=== PATIENT | male | born 1980 | race Two or more races ===

== ENCOUNTER 2019-06-13 23:41 | Inpatient (IN) | payer SELFPAY ==
[~2019-06-13] VITALS: Ht 177.8 cm; Wt 98.0 kg
[2019-06-14] VITALS (18 sets, daily range): BP systolic 81–115; BP diastolic 38–65
[2019-06-14] MEDS ORDERED: PANTOPRAZOLE 40 MG/10 ML VIAL INJ IV ONE ×2 (00:15→00:58)
[2019-06-14] MEDS ORDERED: PANTOPRAZOLE 80 MG in SODIUM CHL 0.9% 60 ML IV ONE (00:15)
[2019-06-14] MEDS ORDERED: SODIUM CHLORIDE 0.9% 2,000 ML IV ONE (00:15)
[2019-06-14 00:25] LABS: Eosinophils # (auto) 0 uL; Eosinophils % (auto) 0.5 % (0.0-7.0); Hemoglobin 8.3 g/dL (13.5-17.5); Lymphocytes # (auto) 0.4 uL; Lymphocytes % (auto) 5.6 % (10.0-50.0); Monocytes # (auto) 0.4 uL
[2019-06-14 00:26] LABS: Basophils # (auto) 0.1 uL; Basophils % (auto) 0.7 % (0.0-2.0); Hematocrit 26.6 % (41.0-53.0); Mean Corpuscular Hgb Conc. 31.2 g/dL (32.0-36.0); Mean Corpuscular Volume 76.8 fL (80.0-100.0); Monocytes % (auto) 5.6 % (0.0-12.0); Neutrophils % (auto) 87.6 % (37.0-80.0); Nucleated Red Blood Cells % 0.1 %; Platelet Count (auto) 126 10^3/uL (140-450); Red Blood Cells 3.47 10^6/uL (4.5-5.90); Red Cell Distribution Width 17.7 % (11.8-14.3); White Blood Cell 7.9 10^3/uL (4.4-10.8)
[2019-06-14 00:39] LABS: Alanine Aminotransferase 241 U/L (16-61); Albumin 2.9 g/dL (3.4-5.0); Anion Gap 8 (5-15); Aspartate Aminotransferase 415 U/L (15-37); Blood Urea Nitrogen 24 mg/dL (7-18); Calcium 7.1 mg/dL (8.5-10.1); Carbon Dioxide 21 mmol/L (21-32); Chloride 115 mmol/L (98-107); GFR African American 122 mL/min; GFR Non-African American 101 mL/min; Glucose 121 mg/dL (74-106); Potassium 4.9 mmol/L (3.5-5.1); Sodium 144 mmol/L (136-145)
[2019-06-14 00:40] LABS: INR 1.53 (0.9-1.15); Partial Thromboplastin Time 26.7 sec (23.64-32.05)
[2019-06-14 00:44] LABS: Lactic Acid w/Reflex 4.7 mmol/L (0.4-2.0)
[2019-06-14 00:50] LABS: Alkaline Phosphatase 108 U/L (45-117); Bilirubin, Total 1.2 mg/dL (0.2-1.0); Total Protein 6.5 g/dL (6.4-8.2)
[2019-06-14] MEDS ORDERED: SODIUM CHLORIDE 0.9% 3,000 ML IV ONE (02:00)
[2019-06-14] MEDS ORDERED: VANCOMYCIN PER PHARMACY 1,000 MG IV SCH (02:00)
[2019-06-14] MEDS ORDERED: IOHEXOL 300 MG/ML 100ML BOTTLE IJ ONE (02:16)
[2019-06-14] MEDS ORDERED: VANCOMYCIN 1GM/250ML 250 ML IV SCH (02:30)
[2019-06-14] MEDS: VANCOMYCIN 500 MG in D5W 5% 100 ML IV SCH ×2 (04:00→04:46)
[2019-06-14] MEDS ORDERED: PIPERACILLIN-TAZOB 3.375GM 100 ML IV SCH (06:00)
[2019-06-14] MEDS ORDERED: ONDANSETRON HCL 4 MG/2 ML VIAL IV PRN (06:00)
[2019-06-14] MEDS ORDERED: OCTREOTIDE ACETATE 500 MCG/ML VL ONE (06:12)
[2019-06-14] MEDS ORDERED: OCTREOTIDE ACETATE 100 MCG/ML VL ONE (06:12)
[2019-06-14] MEDS ORDERED: MORPHINE SULF INJ 2 MG/ML SYRINGE 1ML IV PRN (06:15)
[2019-06-14] MEDS ORDERED: NITROGLYCERIN 0.4 MG SL TAB SL PRN (06:15)
[2019-06-14] MEDS: D5W/SOD CHL 0.45% 1,000 ML IV SCH (06:56)
[2019-06-14 06:59] LABS: Hematocrit 20.2 % (41.0-53.0)
[2019-06-14 07:07] LABS: Hemoglobin 6.5 g/dL (13.5-17.5)
[2019-06-14] MEDS: OCTREOTIDE ACETATE 500 MCG in SODIUM CHL 0.9% 99 ML IV SCH ×2 (07:17→16:31)
[2019-06-14] MEDS: PANTOPRAZOLE 80 MG in SODIUM CHL 0.9% 60 ML IV SCH ×2 (07:40→10:06)
--- NOTE | 2019-06-14 08:00 | NUR ---
RECEIVED PATIENT FROM THE ER WITH COMPLAINT, OF VOMITING BLOOD AND BLOOD IN THE STOOL, A/O TIMES 4, BUT DIZZY AND WEAK AT THIS TIME AND HAD TO BE GOTTEN TO THE BED, O2 BY R/A, STATES HE CAN USE THE URINAL, PROTONIX DRIP AT 8ML/HR INFUSING INTO THE LAC AND OCTREOTIDE 10ML/HR INFUSING INTO THE RAC BOTH BY THE IV PUMP, EXPLAIN THE P AND P OF THE MARIJA
--- NOTE | 2019-06-14 08:30 | NUR ---
PATIENT IS NPO Addendum: 06/14/19 at 1855 by Kimberley Morton RN PLACED 20G TO THE LEFT HAND 07/17 ATTEMPTS USING STERILE TECHNIQUE
--- NOTE | 2019-06-14 09:15 | NUR ---
VOMITED ABOUT 100ML OF CLOTTED THIGH DARK BLOOD
--- NOTE | 2019-06-14 09:33 | NUR ---
FIRST UNIT OF BLOOD STARTED
[2019-06-14] MEDS ORDERED: LEVOFLOXACIN 500MG 100 ML IV SCH (10:00)
--- NOTE | 2019-06-14 10:10 | NUR ---
LYING IN BED THE BED, WITH EYES CLOSED
--- NOTE | 2019-06-14 10:30 | NUR ---
GIRLFRIEND IN TO VISIT WITH THE PATIENT
--- NOTE | 2019-06-14 11:10 | NUR ---
DR TIPTON IN TO SEE THE PATIENT AND SPOKE TO HIM ABOUT HAVING A EGD TOMORROW
[2019-06-14] MEDS ORDERED: METOCLOPRAMIDE HCL 5MG/ml INJ 2ml VIAL IV ONE (11:30)
--- NOTE | 2019-06-14 11:30 | NUR ---
DR DOWNS IN TO SEE THE PATIENT AND CHANGED THE ANTIBIOTICS
--- NOTE | 2019-06-14 12:05 | NUR ---
FIRST UNIT OF BLOOD FINISHED AND NOT REACTION
--- NOTE | 2019-06-14 12:12 | NUR ---
SECOND UNIT OF BLOOD STARTED,
[2019-06-14] MEDS ORDERED: LORazepam 2MG/ML-1ML VIAL IV PRN (12:30)
--- NOTE | 2019-06-14 13:00 | NUR ---
LYING IN BED WITH EYES CLOSED
[2019-06-14] MEDS: cefTRIAXone 1GM/50ML D5W 50 ML IV SCH (13:01)
[2019-06-14] MEDS: metroNIDAZOLE 500MG/100ML 100 ML IV SCH ×2 (14:14→21:25)
--- NOTE | 2019-06-14 14:15 | NUR ---
LYING IN BED WITH EYES CLOSED
[2019-06-14] MEDS ORDERED: VANCOMYCIN 1,500 MG in D5W 5% 250 ML IV SCH (15:00)
--- NOTE | 2019-06-14 15:00 | NUR ---
STATES HE IS FEELING AT LITTLE BETTER
--- NOTE | 2019-06-14 15:30 | NUR ---
SECOND UNIT OF BLOOD FINISHED
--- NOTE | 2019-06-14 16:18 | NUR ---
ONE UNIT OF FFP BEING STARTED,
[2019-06-14] MEDS: FOLIC ACID 1 MG, MULTIPLE VITAMIN 10 ML, MAGNESIUM SULF SDV 50% 8 MEQ, THIAMINE INJ 100... INJ SCH ×5 (16:32)
--- NOTE | 2019-06-14 17:01 | NUR ---
NO COMPLAINTS , LYING IN BED
--- NOTE | 2019-06-14 18:30 | NUR ---
LYING IN BED WATCHING TV, O2 BY R/A, A/O [id number], I UNIT OF FFP FINISHED AND NO REACTION OCTREOTIDE INFUSING INTO THE LEFT HAND AT 10ML/HR BY THE IV PUMP, AND MULTI VITAMINS INFUSING INTO THE LAC AT 126ML/HR BY THE IV PUMP, ABLE TO GET UP TO THE BSC OR USE THE URINAL, VOMITED TIMES 1 TODAY AND HAD 2 BLOODY STOOL, NO COMPLAINING OF ANY PAIN TO THE ABD AT THIS TIME, WILL CONTINUE TO MONITOR AND TEXTILE PIN WORKER REPORT TO THE NEXT SHIFT
[2019-06-14 18:34] LABS: Hematocrit 23.3 % (41.0-53.0); Hemoglobin 7.8 g/dL (13.5-17.5)
--- NOTE | 2019-06-14 19:50 | NUR ---
Opening Shift Note Assumed care of patient, awake and alert. No S/S of distress/SOB or pain. Instructed on POC and possible procedure scheduled for tomorrow. Patient states he does not recall conversation with GI, Dr. Barros regarding it,consents will not be signed.Instructed patient to call for assist PRN, will continue to monitor for changes q1hr and PRN. See interventions for complete assessment.
[2019-06-14] MEDS: PANTOPRAZOLE 40 MG/10 ML VIAL INJ IV SCH (21:25)
[2019-06-14] MEDS ORDERED: MORPHINE SULF INJ 2 MG/ML SYRINGE 1ML IV ONE (21:30)
--- NOTE | 2019-06-14 21:59 | NUR ---
PT WAS C/O HEADACHE FROM RECENT FALL RATED 8/10 SPOKE TO OVER THE PHONE AND NEW TELEPHONE ORDER READ BACK AND VERIFIED FOR 2MG MORPHINE IV X1. MORPHINE IV GIVEN TO PATIENT PER ORDERS, WILL REASSESS FOR EFFECTIVENESS PATIENT'S SIGNIFICANT OTHER JESUS AT BEDSIDE
[2019-06-15] VITALS (15 sets, daily range): BP systolic 58–125; BP diastolic 51–72
[2019-06-15] MEDS: D5W/SOD CHL 0.45% 1,000 ML IV SCH ×3 (00:44→23:12)
[2019-06-15 00:51] LABS: Hemoglobin 7.6 g/dL (13.5-17.5)
[2019-06-15] MEDS: OCTREOTIDE ACETATE 500 MCG in SODIUM CHL 0.9% 99 ML IV SCH ×3 (02:49→23:30)
[2019-06-15] MEDS: metroNIDAZOLE 500MG/100ML 100 ML IV SCH ×3 (06:20→23:13)
[2019-06-15 06:36] LABS: Hemoglobin 7.2 g/dL (13.5-17.5); Lymphocytes # (auto) 0.6 uL
[2019-06-15 06:39] LABS: Basophils # (auto) 0 uL; Basophils % (auto) 0.6 % (0.0-2.0); Eosinophils # (auto) 0.1 uL; Eosinophils % (auto) 0.9 % (0.0-7.0); Hematocrit 21.6 % (41.0-53.0); Lymphocytes % (auto) 9.8 % (10.0-50.0); Mean Corpuscular Hemoglobin 25.9 pg (28.0-32.0); Mean Corpuscular Hgb Conc. 33.3 g/dL (32.0-36.0); Mean Corpuscular Volume 77.6 fL (80.0-100.0); Monocytes # (auto) 0.6 uL; Monocytes % (auto) 9.7 % (0.0-12.0); Neutrophils # (auto) 5.1 uL; Red Blood Cells 2.78 10^6/uL (4.5-5.90); Red Cell Distribution Width 17.8 % (11.8-14.3); White Blood Cell 6.5 10^3/uL (4.4-10.8)
--- NOTE | 2019-06-15 06:45 | NUR ---
AM CARE PATIENT INDEPENDENTLY CLEANSED SELF WITH CHG WIPES. COMPLETE LINEN CHANGE DONE BY PANCHITO COMBS.
[2019-06-15 06:51] LABS: INR 1.69 (0.9-1.15)
[2019-06-15 07:05] LABS: Potassium 3.5 mmol/L (3.5-5.1)
[2019-06-15 07:11] LABS: Albumin 2.6 g/dL (3.4-5.0); BUN/Creatinine Ratio 25.3; Calcium 7.1 mg/dL (8.5-10.1)
[2019-06-15 07:24] LABS: Platelet Count (auto) 47 10^3/uL (140-450)
[2019-06-15 07:28] LABS: Bilirubin, Total 2.2 mg/dL (0.2-1.0); Total Protein 5.6 g/dL (6.4-8.2)
--- NOTE | 2019-06-15 07:30 | NUR ---
RECEIVED PATIENT SITTING UP IN THE BED, A/O TIMES 4, O2 BY R/A, OCTREOTIDE AT 10ML/HR INFUSING INTO THE LEFT HAND AND D5.45 AT 75ML/HR INFUSING INTO THE LFA BOTH BY THE IV PUMP, USES THE URINAL, SALINE LOCK TO THE RFA PATENT AND INTACT, NO COMPLAINTS OF PAIN AND NO NAUSEA DURING THE NIGH, WILL CONTINUE TO MONITOR AND AND GIVE REPORT TO THE NEXT SHIFT
--- NOTE | 2019-06-15 08:00 | NUR ---
CALLED DR TIPTON AND MADE HIM AWARE OF THE HGB OF 7.2 AND STATED TO GIVE 1 UNIT OF BLOOD
--- NOTE | 2019-06-15 08:30 | NUR ---
PATIENT WAITING FOR THE EGD TO BE DONE
[2019-06-15] MEDS: cefTRIAXone 1GM/50ML D5W 50 ML IV SCH (09:00)
[2019-06-15] MEDS ORDERED: FLUMAZENIL 0.1 MG/ML INJ 10ML MDV IV ONE (09:16)
[2019-06-15] MEDS ORDERED: LIDOCAINE VISCOUS 2% 15ML UD ONE (09:16)
[2019-06-15] MEDS ORDERED: diphenhdrAMINE HCL 50 MG/1 ML VL ONE (09:16)
[2019-06-15] MEDS ORDERED: SODIUM CHLORIDE LOCK 10 ML ONE (09:16)
[2019-06-15] MEDS ORDERED: NALOXONE HCL 0.4 MG/ML VIAL ONE (09:16)
[2019-06-15] MEDS: PANTOPRAZOLE 40 MG/10 ML VIAL INJ IV SCH ×2 (09:35→23:13)
--- NOTE | 2019-06-15 09:45 | NUR ---
ONE UNIT OF BLOOD BEING STARTED
--- NOTE | 2019-06-15 10:00 | NUR ---
NO REACTION FROM THE BLOOD
[2019-06-15] MEDS ORDERED: fentaNYL CITRATE 100 MCG/2 ML VL ONE (11:04)
[2019-06-15] MEDS ORDERED: MIDAZOLAM HCL 5 MG/ML-1ML VIAL ONE (11:04)
[2019-06-15] MEDS: fentaNYL CITRATE 100 MCG/2 ML VL ONE ×3 (11:18→11:25)
[2019-06-15] MEDS: MIDAZOLAM HCL 5 MG/ML-1ML VIAL ONE ×3 (11:18→11:25)
--- NOTE | 2019-06-15 11:20 | NUR ---
EGD BEING DONE BY DR TIPTON
--- NOTE | 2019-06-15 11:45 | NUR ---
EGD FINISHED DR TIPTON STATES THE PATENT HAS VARICES WHICH HE BANDED 6
--- NOTE | 2019-06-15 12:15 | NUR ---
BLOOD FINISHED AND PATIENT HAD NO REACTION
[2019-06-15] MEDS: FOLIC ACID 1 MG, MULTIPLE VITAMIN 10 ML, MAGNESIUM SULF SDV 50% 8 MEQ, THIAMINE INJ 100... INJ SCH ×5 (12:28)
--- NOTE | 2019-06-15 12:45 | NUR ---
DR TIPTON BACK TO TALK TO HIM AND HIS FRIEND ABOUT THE RESULT OF THE EGD
--- NOTE | 2019-06-15 13:15 | NUR ---
PATIENT SLEEPING FROM THE EGD MEDICATION
--- NOTE | 2019-06-15 15:20 | NUR ---
DR DAVIDSON IN TO SEE THE PATIENT AND ORDER LABS FOR TOMORROW
--- NOTE | 2019-06-15 16:00 | NUR ---
LYING BED WITH EYES CLOSED
--- NOTE | 2019-06-15 17:00 | NUR ---
FFP FINISHED NO REACTION
--- NOTE | 2019-06-15 18:35 | NUR ---
SITTING UP IN THE BED TALKING TO HIS FIEND JESUS, A/O TIMES 4, O2 BY R/A, NO COMPLAINTS OF PAIN JUST WANTING TO DRINK BUT EXPLAIN TO HIM THAT DR TIPTON STATED ABSOLUTELY NOTING GOES IN HIS MOUTH, BANANA BAG AT 125ML/HR INFUSING INTO THE LFA AND OCTREOTIDE AT 10ML/HR INFUSING INTO THE LEFT HAND BOTH BY THE IV PUMP, ABLE TO USE THE URINAL OR BSC SALINE LOCK TO THE RFA 20G INTACT AND PATENT, WILL CONTINUE TO MONITOR AND GIVE REPORT TO THE NEXT SHIFT
[2019-06-16] VITALS: BP 108/62
[2019-06-16 04:00] VITALS: BP 119/71
[2019-06-16 05:35] LABS: Basophils # (auto) 0 uL; Eosinophils # (auto) 0.1 uL; Lymphocytes # (auto) 0.6 uL; Monocytes # (auto) 0.5 uL
[2019-06-16 05:39] LABS: Basophils % (auto) 0.4 % (0.0-2.0); Eosinophils % (auto) 0.9 % (0.0-7.0); Hematocrit 21.4 % (41.0-53.0); Lymphocytes % (auto) 10.7 % (10.0-50.0); Mean Corpuscular Hemoglobin 26.4 pg (28.0-32.0); Mean Corpuscular Hgb Conc. 32.6 g/dL (32.0-36.0); Mean Corpuscular Volume 81.1 fL (80.0-100.0); Monocytes % (auto) 9.6 % (0.0-12.0); Neutrophils # (auto) 4.5 uL; Neutrophils % (auto) 78.4 % (37.0-80.0); Platelet Count (auto) 39 10^3/uL (140-450); Red Blood Cells 2.64 10^6/uL (4.5-5.90); White Blood Cell 5.7 10^3/uL (4.4-10.8)
[2019-06-16] MEDS: metroNIDAZOLE 500MG/100ML 100 ML IV SCH (05:43)
[2019-06-16 05:51] LABS: Albumin 2.5 g/dL (3.4-5.0); BUN/Creatinine Ratio 19.7; Calcium 7.3 mg/dL (8.5-10.1); Potassium 3.4 mmol/L (3.5-5.1)
[2019-06-16 06:01] LABS: Bilirubin, Total 4.2 mg/dL (0.2-1.0); Total Protein 5.7 g/dL (6.4-8.2)
[2019-06-16 08:00] VITALS: BP 120/76
[2019-06-16] MEDS: cefTRIAXone 1GM/50ML D5W 50 ML IV SCH (09:22)
[2019-06-16] MEDS: OCTREOTIDE ACETATE 500 MCG in SODIUM CHL 0.9% 99 ML IV SCH ×2 (09:23→20:57)
[2019-06-16] MEDS: PANTOPRAZOLE 40 MG/10 ML VIAL INJ IV SCH ×2 (09:23→21:27)
--- NOTE | 2019-06-16 09:45 | NUR ---
FAMILY Patients girlfriend at bedside updated on patient condition and questions answered.
[2019-06-16 10:41] LABS: Basophils # (auto) 0 uL; Eosinophils # (auto) 0.1 uL; Lymphocytes % (auto) 11.4 % (10.0-50.0); Monocytes # (auto) 0.6 uL; Nucleated Red Blood Cells % 0.1 %; Platelet Count (auto) 45 10^3/uL (140-450)
[2019-06-16 10:43] LABS: Basophils % (auto) 0.7 % (0.0-2.0); Eosinophils % (auto) 1.8 % (0.0-7.0); Hematocrit 22.8 % (41.0-53.0); Hemoglobin 7.4 g/dL (13.5-17.5); Lymphocytes # (auto) 0.6 uL; Mean Corpuscular Hemoglobin 26.4 pg (28.0-32.0); Mean Corpuscular Hgb Conc. 32.3 g/dL (32.0-36.0); Mean Corpuscular Volume 81.7 fL (80.0-100.0); Monocytes % (auto) 10.1 % (0.0-12.0); Neutrophils # (auto) 4.3 uL; Red Blood Cells 2.79 10^6/uL (4.5-5.90); Red Cell Distribution Width 18.5 % (11.8-14.3); White Blood Cell 5.7 10^3/uL (4.4-10.8)
[2019-06-16 12:00] VITALS: BP 126/76
[2019-06-16] MEDS: FOLIC ACID 1 MG, MULTIPLE VITAMIN 10 ML, MAGNESIUM SULF SDV 50% 8 MEQ, THIAMINE INJ 100... INJ SCH ×5 (12:00)
--- NOTE | 2019-06-16 12:10 | NUR ---
ULTRASOUND carpet technician at bedside to obtain study of lower extremities.
--- NOTE | 2019-06-16 15:50 | NUR ---
Nutrition Assessment Notes Est energy needs 1745-1099 kcals (23-25 kcals/kg BW) Est protein needs: 76-95 gms (0.8-1.0gm/kg BW) Will continue to monitor and reassess prn. Addendum: 06/16/19 at [address] Amended: Links added.
[2019-06-16 16:12] VITALS: BP 121/73
[2019-06-16] MEDS ORDERED: POTASSIUM CHL 20 Meq TABLET PO ONE (17:45)
--- NOTE | 2019-06-16 19:30 | NUR ---
Opening Shift Note/ Elimination Assumed care of patient, awake and alert, asked to use a restroom. Assisted Pt with wires and IVF. Pt OOB with no lightheadedness, stable gait, walked to the restroom without accident. Pt passed a soft brown stool and yellowish urine. Pt wiped and washed his hands by self. Pt back to bed without incident. Breathing on RA, even and nonlabored, No S/S of distress/SOB. Denied pain. 2 PIV at left arm, CDI site, infusing banana bag and Sandostatin. Bed in low position, call light within reach, all alarms are audible. Pt refused to [place] non skid socks. Instructed on POC and to call for assist PRN, will continue to monitor for changes Q1hr and PRN.
[2019-06-16 20:00] VITALS: BP 130/86
--- NOTE | 2019-06-16 23:26 | NUR ---
Condition update Pt resting well. VSS. IV sites CDI. Continue care.
[2019-06-17] VITALS: BP 110/67
--- NOTE | 2019-06-17 02:00 | NUR ---
Condition update Pt resting well on bed. VSS. Continue care.
[2019-06-17 04:00] VITALS: BP 108/58
--- NOTE | 2019-06-17 05:40 | NUR ---
Summary Pt's condition and VSS. Slept well through out the night. Refused am care for now. Walked to restroom without incident. Voided x1, BM x1, no GIB noted. Continue care and will endorsed to day shift.
--- NOTE | 2019-06-17 05:45 | NUR ---
IV d/s done Peripheral IV x3, all flushed well, CDI sites, due to d/s today. PIV d/s done x 3 sites. Pt tolerated well.
[2019-06-17 06:07] LABS: Albumin 2.6 g/dL (3.4-5.0); Basophils # (auto) 0.1 uL; Calcium 7.1 mg/dL (8.5-10.1); Eosinophils # (auto) 0.1 uL; Eosinophils % (auto) 2.7 % (0.0-7.0); Hematocrit 22.4 % (41.0-53.0); Hemoglobin 7.3 g/dL (13.5-17.5); Lymphocytes # (auto) 0.6 uL; Mean Corpuscular Hemoglobin 26.7 pg (28.0-32.0); Mean Corpuscular Hgb Conc. 32.6 g/dL (32.0-36.0); Mean Corpuscular Volume 81.8 fL (80.0-100.0); Monocytes # (auto) 0.6 uL; Monocytes % (auto) 11.7 % (0.0-12.0); Neutrophils # (auto) 3.7 uL; Neutrophils % (auto) 72.6 % (37.0-80.0); Nucleated Red Blood Cells % 0.2 %; Platelet Count (auto) 46 10^3/uL (140-450); Potassium 3.7 mmol/L (3.5-5.1); Red Blood Cells 2.74 10^6/uL (4.5-5.90); Red Cell Distribution Width 18.6 % (11.8-14.3); White Blood Cell 5.1 10^3/uL (4.4-10.8)
[2019-06-17 06:10] LABS: BUN/Creatinine Ratio 17.9; Bilirubin, Total 4.3 mg/dL (0.2-1.0); Total Protein 5.8 g/dL (6.4-8.2)
--- NOTE | 2019-06-17 07:30 | NUR ---
RECEIVED PATIENT SITTING UP IN THE BED, A/O TIMES 4, O2 BY R/A, DENIES PAIN, STATES HE FEELS BETTER TODAY, OCTREOTIDE AT 1OML/HR INFUSING INTO THE LEFT HAND BY THE IV PUMP, SALINE LOCK TO THE RFA 20G AND LFA 20G BOTH FLUSHED AND PATIENT, GOES TO THE BR NO HELP NEEDED
[2019-06-17] MEDS: OCTREOTIDE ACETATE 500 MCG in SODIUM CHL 0.9% 99 ML IV SCH (07:45)
[2019-06-17 08:00] VITALS: BP 117/73
--- NOTE | 2019-06-17 08:30 | NUR ---
SAT UP IN BED AND ATE HIS BREAKFAST NO HELP NEEDED
--- NOTE | 2019-06-17 09:15 | NUR ---
DR DOWNS IN TO SEE THE PATIENT AND WROTE TO TRANSFER TO TELE
[2019-06-17] MEDS: PANTOPRAZOLE 40 MG/10 ML VIAL INJ IV SCH ×2 (09:43→22:14)
--- NOTE | 2019-06-17 09:45 | NUR ---
DISCUSSED MEDICATIONS WITH THE PATIENT REGARDING THE DOSAGE, USAGE, AND THE SIDE EFFECTS, VERBALIZED THAT HE UNDERSTOOD AND MEDS GIVEN ORDERED
--- NOTE | 2019-06-17 10:45 | NUR ---
SEMI FOWLERS IN BED WITH EYES CLOSED APPEARS TO BE SLEEPING
--- NOTE | 2019-06-17 11:45 | NUR ---
LYING IN BED APPEARS TO BE SLEEPING
[2019-06-17 12:00] VITALS: BP 114/77
--- NOTE | 2019-06-17 12:05 | NUR ---
FRIEND JESUS CALLED TO INQUIRE ABOUT THE PATIENT
--- NOTE | 2019-06-17 12:20 | NUR ---
SAT UP IN BED AND ATE HIS LUNCH
[2019-06-17] MEDS: FOLIC ACID 1 MG, MULTIPLE VITAMIN 10 ML, MAGNESIUM SULF SDV 50% 8 MEQ, THIAMINE INJ 100... INJ SCH ×5 (12:28)
[2019-06-17] MEDS: SODIUM FERR GLUC 62.5MG/5ML 125 MG in SODIUM CHL 0.9% 100 ML IV SCH (12:28)
--- NOTE | 2019-06-17 13:14 | NUR ---
UP TO THE BR NO HELP NEEDED
--- NOTE | 2019-06-17 13:48 | NUR ---
SITTING UP IN BED WATCHING TV
--- NOTE | 2019-06-17 15:00 | NUR ---
WATCHING TV, NO PAIN AND NO BLEEDING IN STOOL TODAY,
[2019-06-17 15:56] VITALS: BP 122/84
--- NOTE | 2019-06-17 16:05 | NUR ---
PATIENT BEING TRANSFERRED TO ROOM 223B ON TELE 39, REPORT CALLED TO ASHLIE ORR , PATIENT GOING BY THE BED, PATIENT HAS CELL PHONE AND SENIOR MEDICAL TRANSCRIPTIONIST
--- NOTE | 2019-06-17 16:26 | NUR ---
Telemetry transfer from [facility] admitted to Telemetry unit after SBAR received. Patient oriented to ASHLIE LEE, primary RN, unit, room, bed, and unit policies regarding patient care and visiting hours. Patient now on continuous telemetry monitoring, tele box # [[id number]] and telemetry reading on arrival to unit is [SR [id number]]. Patient is alert and awake with even and unlabored respirations. Patient is on room air with no S/S of distress/SOB. Bed is in lowest position, wheels are locked, side rails up x2, and call light is within reach. Patient undated on POC and all questions and concerns addressed, patient verbalized understanding. Patient encouraged to call PRN, will continue to monitor q1h and PRN.
--- NOTE | 2019-06-17 18:00 | NUR ---
Rounds Patient awake and alert sitting up in bed. No S/S of distress/SOB or pain. Will continue to monitor changes q1hr and PRN.
[2019-06-17 22:00] VITALS: BP 128/73
[2019-06-18 05:30] VITALS: BP 129/70
[2019-06-18 09:00] VITALS: BP 126/73
[2019-06-18] MEDS: PANTOPRAZOLE 40 MG/10 ML VIAL INJ IV SCH (09:51)
[2019-06-18 10:35] LABS: Basophils # (auto) 0 uL; Basophils % (auto) 1.1 % (0.0-2.0); Eosinophils # (auto) 0.1 uL; Hemoglobin 7.5 g/dL (13.5-17.5); Lymphocytes # (auto) 0.5 uL; Platelet Count (auto) 59 10^3/uL (140-450)
[2019-06-18 10:36] LABS: Eosinophils % (auto) 3.5 % (0.0-7.0); Hematocrit 23.2 % (41.0-53.0); Lymphocytes % (auto) 11.8 % (10.0-50.0); Mean Corpuscular Hemoglobin 26.7 pg (28.0-32.0); Mean Corpuscular Hgb Conc. 32.4 g/dL (32.0-36.0); Mean Corpuscular Volume 82.6 fL (80.0-100.0); Monocytes # (auto) 0.7 uL; Monocytes % (auto) 16.1 % (0.0-12.0); Neutrophils # (auto) 2.8 uL; Neutrophils % (auto) 67.5 % (37.0-80.0); Nucleated Red Blood Cells % 0.3 %; Red Blood Cells 2.82 10^6/uL (4.5-5.90); Red Cell Distribution Width 18.9 % (11.8-14.3); White Blood Cell 4.1 10^3/uL (4.4-10.8)
[2019-06-18 10:52] LABS: Albumin 2.4 g/dL (3.4-5.0); Calcium 6.8 mg/dL (8.5-10.1); Potassium 3.1 mmol/L (3.5-5.1)
[2019-06-18 10:56] LABS: BUN/Creatinine Ratio 13.2; Bilirubin, Total 4.9 mg/dL (0.2-1.0); Total Protein 5.7 g/dL (6.4-8.2)
[2019-06-18] MEDS ORDERED: POTASSIUM CHL 20 Meq TABLET PO ONE (11:30)
[2019-06-18] MEDS: SODIUM FERR GLUC 62.5MG/5ML 125 MG in SODIUM CHL 0.9% 100 ML IV SCH (11:58)
[2019-06-18] MEDS: FOLIC ACID 1 MG, MULTIPLE VITAMIN 10 ML, MAGNESIUM SULF SDV 50% 8 MEQ, THIAMINE INJ 100... INJ SCH ×5 (12:00)
[2019-06-18 13:00] VITALS: BP 124/79
[2019-06-18] MEDS ORDERED: MULTTAB61 PO (15:45)
[2019-06-18] MEDS ORDERED: FER325T PO (15:45)
[2019-06-18] MEDS ORDERED: PANT40TA2 PO (15:45)
[2019-06-18 15:58] VITALS: BP 124/79
[2019-06-18 17:00] VITALS: BP 131/77
== END 2019-06-18 17:50 | disposition home or self-care (01) | DRG 871 ==
LOC: ER 23:45 → OVERFLOW 23:46 → DOU IN ICU 06-14 08:10 → TELE-CENTR 06-17 16:25
PROVIDERS: ADMIT Nurse Practitioner; ATTEND Internal Medicine
PROC: 30233K1 Transfusion of Nonautologous Frozen Plasma into Peripheral Vein, Percutaneous Approach (ICD-10-PCS; 2019-06-14)
PROC: 30233N1 Transfusion of Nonautologous Red Blood Cells into Peripheral Vein, Percutaneous Approach (ICD-10-PCS; 2019-06-14)
PROC: 06L38CZ Occlusion of Esophageal Vein with Extraluminal Device, Via Natural or Artificial Opening Endoscopic (ICD-10-PCS; principal; 2019-06-15 10:00)
DX: A41.9 Sepsis, unspecified organism (principal); I85.11 Secondary esophageal varices with bleeding; D68.9 Coagulation defect, unspecified; K76.6 Portal hypertension; F10.239 Alcohol dependence with withdrawal, unspecified; E44.0 Moderate protein-calorie malnutrition; D62 Acute posthemorrhagic anemia; E87.0 Hyperosmolality and hypernatremia; D69.59 Other secondary thrombocytopenia; F10.229 Alcohol dependence with intoxication, unspecified; F41.9 Anxiety disorder, unspecified; K70.30 Alcoholic cirrhosis of liver without ascites; E87.6 Hypokalemia; D73.5 Infarction of spleen; K76.0 Fatty (change of) liver, not elsewhere classified; Y90.9 Presence of alcohol in blood, level not specified; Z68.31 Body mass index [BMI] 31.0-31.9, adult
CPT/HCPCS: 36415; 36600; 70450; 71045; 71260; 74177; 80053; 80320; 82550; 82805; 83605; 84484; 85014; 85018; 85025; 85379; 85384; 85610; 85730; 86850; 86900; 86901; 86920; 87040; 93005; 93970; 96365; 96367; 96375; C9113; G0378; J0696; J2250; J2543; J3490; J7060